=== PATIENT | male | born 1990 | race Caucasian/White ===

== ENCOUNTER 2019-09-20 20:30 | Emergency (ER) | payer BC ==
[~2019-09-20] VITALS: Ht 182.9 cm; Wt 72.6 kg
[2019-09-20 20:40] VITALS: BP 147/71
--- NOTE | 2019-09-20 20:43 | NUR ---
TO LOBBY A/W BED AMBULATORY
--- NOTE | 2019-09-20 22:51 | NUR ---
PATIENT AMB TO [facility]
[2019-09-20] MEDS ORDERED: LIDOCAINE MPF 1% 10 MG/ML VIAL INJ ONE (23:45)
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
[2019-09-21] MEDS ORDERED: BACITRACIN OINT 500 UNITS/GM PKT TP ONE ×2 (00:24→00:25)
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
[2019-09-21 00:30] VITALS: BP 147/71
--- NOTE | 2019-09-21 00:31 | NUR ---
PATIENT DISCHARGED BY DR. CELIS, GIVEN INSTRUCTIONS, PATIENT AMB WITH STEADY GAIT.
== END 2019-09-21 00:30 | disposition home or self-care (01) ==
LOC: MED 20:30
DX: S61.213A Laceration without foreign body of left middle finger without damage to nail, initial encounter (principal); W26.0XXA Contact with knife, initial encounter; Y93.89 Activity, other specified; Y92.89 Other specified places as the place of occurrence of the external cause; Y99.8 Other external cause status
CPT/HCPCS: 12001; 99282; J2001